=== PATIENT | male | born 1975 | race Caucasian/White ===

== ENCOUNTER 2024-09-10 13:17 | Emergency (ER) | payer OTHER ==
[~2024-09-10] VITALS: Ht 175.3 cm; Wt 102.1 kg
[2024-09-10 13:33] VITALS: BP 140/75; PULSE 75; TEMP 98.1; O2SAT 96
[2024-09-10] MEDS: BACITRACIN OINT 500 UNITS/GM PKT TP ONE (14:11)
[2024-09-10] MEDS: LIDOCAINE MPF 1% 10 MG/ML VIAL INJ ONE (14:11)
[2024-09-10] MEDS ORDERED: BACI-418 TP (14:34)
[2024-09-10] MEDS ORDERED: IBUP-1842 PO (14:34)
== END 2024-09-10 15:01 | disposition home or self-care (01) ==
LOC: MED 13:17
DX: S61.210A Laceration without foreign body of right index finger without damage to nail, initial encounter (principal); Z79.899 Other long term (current) drug therapy; W29.3XXA Contact with powered garden and outdoor hand tools and machinery, initial encounter; Y93.89 Activity, other specified; Y92.89 Other specified places as the place of occurrence of the external cause; Y99.8 Other external cause status
CPT/HCPCS: 12001; 90471; 90715; 99283; J2003